=== PATIENT | male | born 1990 | race Caucasian/White ===

== ENCOUNTER 2016-05-23 11:21 | Inpatient (IN) | payer OTHER ==
--- NOTE | ~2016-05-23 | PA ---
Unit #: [id number] #: [id number] Patient: EDWARD MARKS [id number] [facility] [address] [place] [address] [id number] MR#: [id number] NAME: EDWARD MARKS. ROOM: P176 Age: 26 Sex: M Admission Date: 05/23/2016 : 1990 Date of Assessment: 05/23/2016 Attending Physician: Luisito Urbano M.D. Admitting Physician: Luisito Urbano M.D. Primary Care Physician: Primary Care Physician No PSYCHIATRIC ASSESSMENT IDENTIFYING INFORMATION The patient is a 26-year-old white male admitted yet again to the [facility] reporting increasing suicidal ideation as well abuse of alcohol and marijuana. CHIEF COMPLAINT None given. INFORMANT(S) Chart. Patient cannot be aroused for interview. HISTORY OF PRESENT ILLNESS The patient is a 26-year-old white male well known to this physician for multiple previous admission to this facility. He is readmitted to the [facility] unit after presenting to this facility voicing positive suicidal ideation with a plan to slit his throat or blow his brains out. He claims that he has been drinking a fifth of hard liquor on a daily basis as well as smoking large amounts of cannabis. The patient was last hospitalized at this facility in March of this year under strikingly similar circumstances. He states that he has been noncompliant with prescribed psychotropic medications for which at this time include Seroquel, trazodone, ranitidine, Thorazine and Neurontin. For more complete history of present illness, please refer to previously dictated notes. PAST PSYCHIATRIC HISTORY Reviewed, no changes. PAST MEDICAL HISTORY Reviewed, no changes. MEDICATIONS 1. Trazodone 2. Seroquel 3. Ranitidine 4. Thorazine 5. Neurontin ALLERGIES Abilify. FAMILY HISTORY Reviewed, no changes. Unit #: [id number] #: [id number] Patient: EDWARD MARKS SOCIAL HISTORY Reviewed, no changes. MENTAL STATUS EXAMINATION Examination at this time reveals the patient to be a large-statured soundly sleeping white male who cannot be aroused for interview in spite of multiple efforts to do so. ASSETS AND LIABILITIES ASSETS: To be assessed. LIABILITIES: Lack of investment in treatment, lack of coping mechanisms, unstable social life, ongoing substance use, limited intelligence. DIAGNOSTIC IMPRESSION 1. Bipolar disorder, most recent episode depressed. 2. Alcohol use disorder. 3. Cannabis use disorder. 4. Fraduhq-Vwkxre-Uhnfow syndrome. 5. Hypertension. TREATMENT PLAN The patient remains hospitalized for safety and stabilization. A routine detoxification protocol for alcohol will be initiated and we will restart the patient's previously prescribed medications. Suicidal precautions are in place. ESTIMATED LENGTH OF STAY Three to five days with followup to take place through the auspices of community mental health resources. Dictated by... Luisito Urbano M.D. REZA/lindsey TD: 05/23/2016 22:07 JOB #: [id number] PSYCHIATRIC ASSESSMENT X Luisito Urbano MD X PSYCHIATRIC ASSESSMENT
--- NOTE | ~2016-05-23 | HP ---
Unit #: [id number] #: [id number] Patient: OLEG MARKS [id number] [place] [address] [id number] MR#: [id number] NAME: OLEG MARKS. ROOM: 76 Age: 26 Sex: M Admission Date: 05/23/2016 : 1990 Attending Physician: Luisito Urbano M.D. Admitting Physician: Luisito Urbano M.D. Primary Care Physician: Primary Care Physician No HISTORY AND PHYSICAL HISTORY OF PRESENT ILLNESS Oleg is a 26 [address] to [facility] because of his abuse of alcohol. PAST MEDICAL HISTORY 1. History of alcohol abuse 2. High blood pressure 3. Zcghaay-Bupixl-Jlryrj Syndrome PAST SURGICAL HISTORY 1. Cleft palate repair 2. Oral ALLERGIES Abilify SOCIAL HISTORY He denies cigarettes. Admits to abusing alcohol and uses marijuana frequently. FAMILY HISTORY Medically not known. He is adopted. REVIEW OF SYSTEMS CONSTITUTIONAL: No fever or chills. HEENT: Denies any sore throat, ear pain or runny nose. CARDIOVASCULAR: Denies chest pain, irregular heart rhythm or palpitations. CHEST: Denies shortness of breath or cough. No hemoptysis. GASTROINTESTINAL: Denies nausea, vomiting, diarrhea or chronic constipation. ENDOCRINE: Denies history of increased thirst or urination. No recent significant weight loss or gain. GENITOURINARY: Denies dysuria, frequency, or hematuria. SKIN: Denies any rashes. HEMATOLOGIC: Denies history of increased bleeding or bruising. MUSCULOSKELETAL: Denies any hot, swollen joints. No generalized muscle pain. NEUROLOGIC: Denies problems with vision or speech. No frequent, severe headaches. No numbness, tingling or weakness in any extremities. Denies loss of bladder or bowel control. CURRENT MEDICATIONS Unit #: [id number] #: [id number] Patient: OLEG MARKS Detox protocol PHYSICAL EXAMINATION GENERAL: Alert, very large, in no apparent distress. VITAL SIGNS: Blood pressure 120/70, heart rate 80, respirations 16, temperature 98.6. WEIGHT: 226 pounds. HEIGHT: 6'6". SKIN: Warm and dry without rash or lesion. HEENT: Normocephalic. TMs not viewed. Oral and nasal passages clear. Conjunctivae clear. Pupils equal, round and reactive to light and accommodation. Extraocular movements intact. NECK: Supple without lymphadenopathy or thyromegaly. HEART: Regular rate and rhythm without murmur. LUNGS: Clear. ABDOMEN: Soft, nontender. : Not done. EXTREMITIES: No evidence of cyanosis, clubbing or edema. Moves all extremities without focal deficit. NEUROLOGICAL: Grossly within normal limits. Cranial Nerves: II: Visual covington are intact. III, IV AND : Extraocular movements are intact. Pupils are equal, round and reactive to light. V: Facial sensation is grossly normal. VII: Facial movements and expression are normal. VIII: Auditory acuity grossly intact. IX, X: Uvula is midline. Phonation is normal. XI: Patient shrugs shoulders and turns head normally. XII: Tongue protrudes in the midline. Sensory and Motor Function: Sensory and motor sensation is grossly normal. Motor: moves all extremities well. Coordination: Gait is normal. Deep Tendon Reflexes: Intact. IMPRESSION Psychiatric admission RECOMMENDATIONS PSYCHIATRIC: Per psychiatrist. MEDICAL: I see no contraindications to participating in facility's activities. MEDICAL PROGNOSIS Good. MEDICAL CONDITION Stable. Dictated by... Viji Cooper P.A.-C. for Сергей Sinclair/lindsey TD: 05/24/2016 01:00 JOB #: [id number] Unit #: [id number] #: [id number] Patient: OLEG MARKS HISTORY AND PHYSICAL X Viji Cooper X HISTORY AND PHYSICAL
--- NOTE | ~2016-05-23 | DS ---
Unit #: [id number] #: [id number] Patient: EDWARD MARKS [id number] [place] [address] [id number] MR#: [id number] NAME: EDWARD MARKS. ROOM: [facility] Age: 26 Sex: M Admission Date: 05/23/2016 : 1990 Discharge Date: 05/27/2016 Attending Physician: Luisito Urbano M.D. Primary Care Physician: Primary Care Physician No DISCHARGE SUMMARY REASON FOR ADMISSION The patient is a 26-year-old single white male with history of bipolar spectrum disorder as well as alcohol abuse, admitted with recently increased alcohol use and suicidal ideation. HOSPITAL COURSE The patient was initially admitted to the [facility] unit and placed on routine detoxification protocol for alcohol. The patient again became agitated and was wandering in the halls. He was subsequently transferred to the [address] [place] [address] unit. Seroquel was increased to 800 mg at h.s. per the patient's request. The patient appeared improved with the increased Seroquel and requested discharge on 05/27/2016 and discharge was ordered. FINAL DIAGNOSES Bipolar disorder, most recent episode, mixed; alcohol use disorder; and "Bulldog syndrome." DISPOSITION ON DISCHARGE The patient is discharged on following medications; Desyrel 200 mg at h.s. p.r.n. insomnia, Thorazine 200 mg q.i.d. for psychosis, Neurontin 800 mg t.i.d. for anxiety, Pepcid 20 mg daily for GERD, and Seroquel 800 mg at bedtime for mood stabilization. DIET AND ACTIVITY No dietary or physical restrictions were placed on the patient at the time of discharge. FOLLOWUP Followup will take place through the auspices of community mental health sources. PROGNOSIS The patient's prognosis is considered fair. Dictated by... Luisito Urbano M.D. CB/leo TD: 05/27/2016 14:21 JOB #: [id number] Unit #: [id number] #: [id number] Patient: EDWARD MARKS DISCHARGE SUMMARY X Luisito Urbano MD X DISCHARGE SUMMARY
--- NOTE | ~2016-05-23 | PN ---
Unit #: [id number] #: [id number] Patient: EDWARD MARKS [id number] [facility] [address] [place] [address] [id number] I MR#: [id number] NAME: EDWARD MARKS. ROOM: P180 Age: 26 Sex: M Admission Date: 05/23/2016 : 1990 Attending Physician: Luisito Urbano M.D. Admitting Physician: Luisito Urbano M.D. Primary Care Physician: Primary Care Physician Bridget BAJWA PROGRESS NOTES DATE 05/25/2016 DISCUSSION The patient continues to complain of severely depressed mood, hopelessness and suicidal ideation stating that he "envisions himself cutting his throat. He is already on high doses of prescribed psychotropic medications and I am fearful that addition of an SSRI might destabilize the patient's bipolar symptoms. I have spoken with the patient regarding the importance of cessation of alcohol use and more to the point have spoken to the patient regarding the importance of some participation within the therapeutic milieu. Dictated by... Luisito Urbano M.D. CB/iban TD: 05/25/2016 16:21 JOB #: [id number] GARETT CONTRERAS NOTES X Luisito Urbano MD PROGRESS NOTE
--- NOTE | ~2016-05-23 | PN ---
Unit #: [id number] #: [id number] Patient: EDWARD MARKS [id number] [facility] [address] [place] [address] [id number] MR#: [id number] NAME: EDWARD MARKS ROOM: P110 Age: 26 Sex: M Admission Date: 05/23/2016 : 1990 Attending Physician: Luisito Urbano M.D. Admitting Physician: Luisito Urbano M.D. Primary Care Physician: Primary Care Physician Bridget BAJWA PROGRESS NOTES DATE 05/26/2016 DISCUSSION The patient continues to endorse positive suicidal ideation and hopelessness. He requests initiation of antidepressant instead of starting an SSRI or such medication. We will begin a trial. We will increase the patient's Seroquel to 800 mg at bedtime. The patient is agreeable with this plan. Dictated by... Сергей Hale TD: 05/26/2016 14:51 JOB #: [id number] DEJAN PROGRESS NOTES X Luisito Urbano MD PROGRESS NOTE
--- NOTE | ~2016-05-23 | PN ---
Unit #: [id number] #: [id number] Patient: EDWARD MARKS [id number] [facility] [address] [place] [address] [id number] I MR#: [id number] NAME: EDWARD MARKS ROOM: 76 Age: 26 Sex: M Admission Date: 05/23/2016 : 1990 Attending Physician: Luisito Urbano M.D. Admitting Physician: Luisito Urbano M.D. Primary Care Physician: Primary Care Physician Bridget CONTRERAS NOTES DATE 05/24/2016 DISCUSSION The patient is abed today continuing to complain of depressed mood and suicidal ideation. He continues to minimize his alcohol use. He remains of suicide precautions and I am encouraging him to increase his participation within the therapeutic milieu. Dictated by... Luisito Urbano M.D. CB/lindsey TD: 05/24/2016 23:22 JOB #: [id number] GARETT CONTRERAS NOTES X Luisito Urbano MD PROGRESS NOTE
[~2016-05-23 11:21] MED LIST: CLONIDINE PO; CONCERTA PO; VOLTAREN75 MG PO; ZANAFLEX PO
[2016-05-24 09:39] LABS: URINE APPEARANCE CLEAR; URINE BILIRUBIN NEG (NEG); URINE BLOOD NEG (NEG); URINE COLOR DK YELLOW; URINE GLUCOSE NEG (NEG); URINE KETONE NEG (NEG); URINE LEUKOCYTE ESTERASE NEG (NEG); URINE NITRATE NEG (NEG); URINE PROTEIN NEG (NEG); URINE SPECIFIC GRAVITY 1.019 (1.003-1.035)
[2016-05-24 09:46] LABS: BASOPHIL% 0.5 % (0-2.5); EOSINOPHIL# 0.3 X10e3 (0-0.7); EOSINOPHIL% 4.8 % (0.0-7.0); HEMATOCRIT 38.5 % (38.0-50.0); HEMOGLOBIN 13.1 gm/dL (13.0-16.0); LYMPHOCYTE% 30.6 % (17.0-45.0); MEAN CELL VOLUME 89.3 FL (83-96); MEAN CORPUSCULAR HEMOGLOBIN 30.4 PG (28-34); MEAN PLATELET VOLUME 7.9 FL (6.5-11.5); MONOCYTE# 0.7 X10e3 (0-1.0); MONOCYTE% 10.2 % (3.0-12.0); NEUTROPHIL# 3.5 X10e3 (1.5-7.1); NEUTROPHIL% 53.9 % (40-75); PLATELET COUNT 135 X10e3 (140-420); RED BLOOD COUNT 4.31 X10e (3.90-5.60); RED CELL DISTRIBUTION WIDTH 13.7 % (11.0-15.5); WHITE BLOOD COUNT 6.5 X10e3 (4.0-10.5)
[2016-05-24 09:50] LABS: DIFF IND NO
[2016-05-24 09:54] LABS: THYROID STIMULATING HORMONE 2.13 uIU/ml (0.34-5.60)
[2016-05-24 10:03] LABS: FREE THYROXIN (T4) 0.62 ng/dL (0.58-1.64)
[2016-05-24 10:16] LABS: ALBUMIN SERUM 4.2 g/dL (3.5-5.0); ALKALINE PHOSPHATASE 54 U/L (32-92); ALT (SGPT) 10 U/L (10-40); AST (SGOT) 13 U/L (10-42); BILIRUBIN,TOTAL 0.8 mg/dL (0.2-2.0); BLOOD UREA NITROGEN 16 mg/dL (9-23); CALCIUM SERUM 9.2 mg/dL (8.4-10.2); CARBON DIOXIDE 27 mmol/L (22-31); CHLORIDE 104 mmol/L (100-111); GLOM FILT RATE Estimated ABOVE60 mL/min (>60); GLUCOSE FASTING 85 mg/dL (70-110); POTASSIUM 4.1 mmol/L (3.5-5.1); PROTEIN TOTAL SERUM 6.9 g/dL (6.0-8.3); SODIUM 141 mmol/L (135-145)
[2016-05-24 10:37] LABS: AMPHETAMINE NEG (NEG); BARBITURATES NEG (NEG); BENZODIAZEPINES POS (NEG); COCAINE NEG (NEG); MARIJUANA POS (NEG); OPIATES NEG (NEG); TRICYCLIC ANTIDEPRESSANTS POS (NEG); U METHADONE NEG (NEG)
== END 2016-05-27 14:37 | disposition home or self-care (01) | DRG 885 ==
LOC: P1E 11:21 → P1S 05-25 17:01
PROVIDERS: Specialist
PROC: HZ2ZZZZ Detoxification Services for Substance Abuse Treatment (ICD-10-PCS; principal; 2016-05-23)
DX: F31.60 Bipolar disorder, current episode mixed, unspecified (principal); I10 Essential (primary) hypertension; Z72.89 Other problems related to lifestyle; F12.90 Cannabis use, unspecified, uncomplicated
CPT/HCPCS: 80053; 80307; 81003; 84439; 84443; 85025; 86592

== ENCOUNTER 2016-07-31 10:00 | Inpatient (IN) | payer OTHER ==
--- NOTE | ~2016-07-31 | HP ---
Unit #: [id number] #: [id number] Patient: OLEG MARKS [id number] [place] [address] [id number] I MR#: [id number] NAME: OLEG MARKS. ROOM: P207 Age: 26 Sex: M Admission Date: 07/31/2016 : 1990 Attending Physician: Luisito Urbano M.D. Admitting Physician: Luisito Urbano M.D. Primary Care Physician: Primary Care Physician No HISTORY AND PHYSICAL HISTORY OF PRESENT ILLNESS Oleg is a 26 year old admitted to [address] [place] [address] with depression and verbalizing wanting to hurt himself. PAST MEDICAL HISTORY 1. History of poly illicit substance abuse to include marijuana and methamphetamine. 2. History of alcohol abuse. 3. High blood pressure. 4. Xoibhbh-Rolwmt-Jogwiu Syndrome. PAST SURGICAL HISTORY 1. Cleft palate repair 2. Oral ALLERGIES Abilify SOCIAL HISTORY He denies cigarettes. Admits to abusing alcohol and uses marijuana and methamphetamine. FAMILY HISTORY Medically not known. He is adopted. REVIEW OF SYSTEMS CONSTITUTIONAL: No fever or chills. HEENT: Denies any sore throat, ear pain or runny nose. CARDIOVASCULAR: Denies chest pain, irregular heart rhythm or palpitations. CHEST: Denies shortness of breath or cough. No hemoptysis. GASTROINTESTINAL: Denies nausea, vomiting, diarrhea or chronic constipation. ENDOCRINE: Denies history of increased thirst or urination. No recent significant weight loss or gain. GENITOURINARY: Denies dysuria, frequency, or hematuria. SKIN: Denies any rashes. HEMATOLOGIC: Denies history of increased bleeding or bruising. MUSCULOSKELETAL: Denies any hot, swollen joints. No generalized muscle pain. NEUROLOGIC: Denies problems with vision or speech. No frequent, severe headaches. No numbness, tingling or weakness in any extremities. Denies loss of bladder or bowel control. Unit #: [id number] #: [id number] Patient: OLEG MARKS CURRENT MEDICATIONS 1. Seroquel 800 mg q.h.s. 2. Neurontin 800 mg t.i.d. 3. Thorazine 200 mg q.i.d. 4. Milk of Magnesia p.r.n. 5. Maalox p.r.n. 6. Tylenol p.r.n. 7. Desyrel 200 mg q.h.s. p.r.n. 8. Nicotine patch 14 mg q day 9. Pepcid 20 mg q day PHYSICAL EXAMINATION GENERAL: Alert, very large young man, in no apparent distress. VITAL SIGNS: Blood pressure 136/84, heart rate 90, respirations 16, temperature 98.6. WEIGHT: 220 pounds. HEIGHT: 6'6". SKIN: Warm and dry without rash or lesion. HEENT: Normocephalic. TMs not viewed. Oral and nasal passages clear. Conjunctivae clear. Pupils equal, round and reactive to light and accommodation. Extraocular movements intact. NECK: Supple without lymphadenopathy or thyromegaly. HEART: Regular rate and rhythm without murmur. LUNGS: Clear. ABDOMEN: Soft, nontender. : Not done. EXTREMITIES: No evidence of cyanosis, clubbing or edema. Moves all extremities without focal deficit. NEUROLOGICAL: Grossly within normal limits. Cranial Nerves: II: Visual covington are intact. III, IV AND : Extraocular movements are intact. Pupils are equal, round and reactive to light. V: Facial sensation is grossly normal. VII: Facial movements and expression are normal. VIII: Auditory acuity grossly intact. IX, X: Uvula is midline. Phonation is normal. XI: Patient shrugs shoulders and turns head normally. XII: Tongue protrudes in the midline. Sensory and Motor Function: Sensory and motor sensation is grossly normal. Motor: moves all extremities well. Coordination: Gait is normal. Deep Tendon Reflexes: Intact. IMPRESSION Psychiatric admission RECOMMENDATIONS PSYCHIATRIC: Per psychiatrist. MEDICAL: I see no contraindications to participating in facility's activities. MEDICAL PROGNOSIS Good. MEDICAL CONDITION Stable. Unit #: [id number] #: [id number] Patient: OLEG MARKS Dictated by... Viji Cooper P.A.-C. for Сергей Sinclair/lindsey TD: 08/02/2016 00:12 JOB #: [id number] HISTORY AND PHYSICAL Page 1 of 1 X Viji Cooper X HISTORY AND PHYSICAL
--- NOTE | ~2016-07-31 | PA ---
Unit #: [id number] #: [id number] Patient: EDWARD MARKS [id number] [place] [address] [id number] I MR#: [id number] NAME: EDWARD MARKS. ROOM: P207 Age: 26 Sex: M Admission Date: 07/31/2016 : 1990 Date of Assessment: 07/31/2016 Attending Physician: Luisito Urbano M.D. Admitting Physician: Luisito Urbano M.D. Primary Care Physician: Primary Care Physician No PSYCHIATRIC ASSESSMENT IDENTIFYING INFORMATION The patient is a 26-year-old white male, well known to this physician admitted with recurrent suicidal ideation, and abuse of methamphetamine. INFORMANT(S) Patient, patient reliability is fair. CHIEF COMPLAINT Detox and suicidal. HISTORY OF PRESENT ILLNESS The patient is a 26-year-old white male, well known to this physician, from multiple previous admissions to this facility. He is admitted with recurrent suicidal ideation related to abuse of methamphetamine and the recent revelation that his mother is suffering from "stage IV lymph node cancer." The patient is continuing to endorse positive suicidal ideation. when seen today he states that he had previously been treated for alcohol withdrawal, but states that his most recent substance of choice has been methamphetamine. He continues to endorse positive suicidal ideation during today's interview. For more complete history of present illness please refer to previously dictated notes. PAST PSYCHIATRIC HISTORY Reviewed and no changes. PAST MEDICAL HISTORY Reviewed and no changes. MEDICATIONS AT THE TIME OF THE PATIENT'S LAST DISCHARGE FROM THIS FACILITY His medication regimen included: 1. Desyrel 2. Thorazine 3. Neurontin 4. Pepcid 5. Seroquel ALLERGIES Abilify FAMILY HISTORY Reviewed and no changes. SOCIAL HISTORY Unit #: [id number] #: [id number] Patient: EDWARD MARKS Reviewed and no changes apart from the fact that the patient's drug of choice on this admission is methamphetamine. MENTAL STATUS EXAM At this time reveals the patient to be a large stature white male appearing his stated age. He is in no apparent physical distress at the time of the examination. He is awake, alert, and oriented in all spheres. His mood is dysphoric. His affect blunted. Speech is generally relevant and coherent. There are no gross deficits to memory or cognition noted. Intelligence is judged to be in the low average range based on fund of knowledge. The patient is cooperative during the interview. He is currently endorsing positive suicidal ideation. He denies homicidal ideation. He denies any psychotic symptoms. His judgment and insight appear to be at baseline. ASSETS To be assessed. LIABILITIES Lack of resources, ongoing substance use. DIAGNOSTIC IMPRESSION [place] I: Bipolar disorder, most recent episode depressed. Alcohol use disorder, by history. Methamphetamine use disorder. Cannabis use disorder. [place] II: [place] III: Nzquqwt-Gouibt-Jcafll syndrome. Hypertension. TREATMENT PLAN The patient remains hospitalized for safety and stabilization and we will restart previously prescribed medications and suicide precautions are in place. The patient will participate in appropriate tsang and milieu activities. ESTIMATED LENGTH OF STAY IN THE HOSPITAL Zudm-gq-tkgij days. Dictated by... Luisito Urbano M.D. REZA/jennifer TD: 08/01/2016 07:30 JOB #: [id number] Unit #: [id number] #: [id number] Patient: KENDRICKEDWARD C PSYCHIATRIC ASSESSMENT Page 1 of 1 X Luisito Urbano MD PSYCHIATRIC ASSESSMENT
--- NOTE | ~2016-07-31 | DS ---
Unit #: [id number] #: [id number] Patient: EDWARD MARKS [id number] [facility] [address] [place] [address] [id number] MR#: [id number] NAME: EDWARD MARKS. ROOM: P207 Age: 26 Sex: M Admission Date: 07/31/2016 : 1990 Discharge Date: 08/02/2016 Attending Physician: Luisito Urbano M.D. Primary Care Physician: Primary Care Physician No DISCHARGE SUMMARY REASON FOR ADMISSION The patient is a 26-year-old white male, admitted with suicidal ideation and abuse of methamphetamine. HOSPITAL COURSE The patient was admitted to the [address] [place] [address] unit and placed on suicide precautions. Home medications including trazodone, Thorazine, Seroquel, and Neurontin were continued. The patient's stay in the hospital was a brief and uneventful one. His mood brightened considerably as his stay in the hospital progressed with re-initiation of medications. By 08/02/2016, the patient requested discharge and it was so ordered. FINAL DIAGNOSES Methamphetamine use disorder; bipolar disorder, most recent episode depressed; Gyeisgk-Ufgfnc-Gltdpv syndrome; history of high blood pressure. DISCHARGE MEDICATIONS The patient was discharged on the following medications; trazodone 300 mg at bedtime for insomnia, Thorazine 200 mg q.i.d. for psychosis, Neurontin 800 mg t.i.d. for anxiety, Seroquel 400 mg two tablets at bedtime for psychosis. DISCHARGE INSTRUCTIONS No dietary or physical restrictions were placed on the patient at the time of discharge. FOLLOWUP Followup will take place through the auspices of community mental health resources. PROGNOSIS The patient's prognosis remains guarded. Dictated by... Luisito Urbano M.D. CB/leo TD: 08/03/2016 03:53 JOB #: [id number] Unit #: [id number] #: [id number] Patient: EDWARD MARKS DISCHARGE SUMMARY Page 1 of 1 X Luisito Urbano MD DISCHARGE SUMMARY
--- NOTE | ~2016-07-31 | PN ---
Unit #: [id number] #: [id number] Patient: EDWARD MARKS [id number] [facility] [address] [place] [address] [id number] MR#: [id number] NAME: EDWARD MARKS ROOM: P207 Age: 26 Sex: M Admission Date: 07/31/2016 : 1990 Attending Physician: Luisito Urbano M.D. Admitting Physician: Luisito Urbano M.D. Primary Care Physician: Primary Care Physician Bridget BAJWA PROGRESS NOTES DATE 08/01/2016 DISCUSSION The patient remains dysphoric. He exhibits little in the way or signs or symptoms of withdrawal but continues to endorse positive suicidal ideation related to his mother's illness. He states that he slept poorly last night but attributes this to his having left his nicotine patch in place. Dictated by... Luisito Urbano M.D. CB/lindsey TD: 08/02/2016 01:59 JOB #: [id number] [facility] PROGRESS NOTES Page 1 of 1 X Luisito Urbano MD PROGRESS NOTE
[2016-08-01 09:59] LABS: BASOPHIL% 0.4 % (0-2.5); EOSINOPHIL# 0.2 X10e3 (0-0.7); EOSINOPHIL% 3.2 % (0.0-7.0); HEMOGLOBIN 13.5 gm/dL (13.0-16.0); LYMPHOCYTE# 1.8 X10e3 (1.0-3.5); LYMPHOCYTE% 24.4 % (17.0-45.0); MEAN CELL VOLUME 91.7 FL (83-96); MEAN CORPUSCULAR HEMOGLOBIN 30.3 PG (28-34); MONOCYTE# 0.9 X10e3 (0-1.0); MONOCYTE% 11.9 % (3.0-12.0); NEUTROPHIL# 4.4 X10e3 (1.5-7.1); NEUTROPHIL% 60.1 % (40-75); PLATELET COUNT 135 X10e3 (140-420); RED BLOOD COUNT 4.47 X10e (3.90-5.60); WHITE BLOOD COUNT 7.4 X10e3 (4.0-10.5)
[2016-08-01 10:14] LABS: DIFF IND NO
[2016-08-01 10:19] LABS: URINE APPEARANCE CLEAR; URINE BILIRUBIN NEG (NEG); URINE BLOOD NEG (NEG); URINE COLOR YELLOW; URINE GLUCOSE NEG (NEG); URINE KETONE NEG (NEG); URINE LEUKOCYTE ESTERASE NEG (NEG); URINE NITRATE NEG (NEG); URINE PROTEIN NEG (NEG); URINE SPECIFIC GRAVITY 1.003 (1.003-1.035); URINE UROBILINOGEN 0.2 MG/DL (NEG)
[2016-08-01 10:36] LABS: ALBUMIN SERUM 4.5 g/dL (3.5-5.0); BILIRUBIN,TOTAL 1.1 mg/dL (0.2-2.0); BUN/CREATININE RATIO 11.81; CALCIUM SERUM 9.3 mg/dL (8.4-10.2); CREATININE SERUM 1.1 mg/dL (0.6-1.4); GLOM FILT RATE Estimated 93.5 mL/min (>60); POTASSIUM 3.7 mmol/L (3.5-5.1); PROTEIN TOTAL SERUM 7.2 g/dL (6.0-8.3)
[2016-08-01 10:41] LABS: AMPHETAMINE NEG (NEG); BARBITURATES NEG (NEG); BENZODIAZEPINES NEG (NEG); COCAINE NEG (NEG); MARIJUANA POS (NEG); OPIATES NEG (NEG); TRICYCLIC ANTIDEPRESSANTS NEG (NEG); U METHADONE NEG (NEG)
== END 2016-08-02 16:41 | disposition home or self-care (01) | DRG 885 ==
LOC: P2S 13:14
PROVIDERS: Specialist
PROC: HZ2ZZZZ Detoxification Services for Substance Abuse Treatment (ICD-10-PCS; principal; 2016-07-31)
DX: F31.9 Bipolar disorder, unspecified (principal); Q87.3 Congenital malformation syndromes involving early overgrowth; R45.851 Suicidal ideations; F10.10 Alcohol abuse, uncomplicated; F15.10 Other stimulant abuse, uncomplicated; F12.10 Cannabis abuse, uncomplicated; I10 Essential (primary) hypertension; Z88.8 Allergy status to other drugs, medicaments and biological substances
CPT/HCPCS: 80053; 80307; 81003; 85025

== ENCOUNTER 2016-08-24 21:25 | Inpatient (IN) | payer OTHER ==
--- NOTE | ~2016-08-24 | PA ---
Unit #: [id number] #: [id number] Patient: EDWARD MARKS [id number] [facility] [address] [place] [address] [id number] MR#: [id number] NAME: EDWARD MARKS. ROOM: P130 Age: 26 Sex: M Admission Date: 08/24/2016 : 1990 Date of Assessment: 08/25/2016 Attending Physician: Luisito Urbano M.D. Admitting Physician: Luisito Urbano M.D. Primary Care Physician: Primary Care Physician No PSYCHIATRIC ASSESSMENT IDENTIFYING INFORMATION The patient is a 26-year-old male admitted to the [address] [place] [address] after he presented to this facility once again voicing suicidal ideation. CHIEF COMPLAINT None given. INFORMANT(S) Chart. Patient cannot be aroused for interview. HISTORY OF PRESENT ILLNESS The patient is a 26-year-old white male well known to this physician from multiple previous admissions to this facility. He is admitted reporting recurrent suicidal ideation with plan to slit his wrist or blow his head off. The patient reports that he also has access to a gun. The patient reports using marijuana and also has in the past abused methamphetamine and alcohol. When seen today, the patient is resting comfortably and cannot be aroused for interview in spite of multiple efforts to do so. PAST PSYCHIATRIC HISTORY Reviewed, no changes. PAST MEDICAL HISTORY Reviewed, no changes. MEDICATIONS Thorazine, Pepcid, Neurontin, Seroquel, and trazodone. ALLERGIES Abilify. FAMILY HISTORY Noncontributory. SOCIAL HISTORY The patient lives with his parents. He is not presently employed. He reports substance use as noted previously including abuse of methamphetamine, cocaine, alcohol, and cannabis. MENTAL STATUS EXAMINATION Examination at this time reveals the patient to be a well-developed well-nourished white male appearing stated age. He is in no apparent physical distress at the time of examination. He is sleeping soundly, and Unit #: [id number] #: [id number] Patient: EDWARD MARKS multiple attempts to arouse him are not successful. ASSETS AND LIABILITIES The patient's assets are to be assessed. Liabilities: Ongoing substance use, lack of resources. Limited intelligence. DIAGNOSTIC IMPRESSION 1. Bipolar disorder, depressed phase, severe without psychotic features. 2. Wjlaxgm-Tgavdo-Rtjhtf syndrome. TREATMENT PLAN The patient's home medications will be restarted, and we will watch for any signs or symptoms of withdrawal. Suicide precautions remain in place. The patient will participate in appropriate order of milieu activities. ESTIMATED LENGTH OF STAY 5 to 7 days. Dictated by... Luisito Urbano M.D. Bindu TD: 08/25/2016 14:18 JOB #: [id number] PSYCHIATRIC ASSESSMENT Page 1 of 1 X Luisito Urbano MD X PSYCHIATRIC ASSESSMENT
--- NOTE | ~2016-08-24 | PN ---
Unit #: [id number] #: [id number] Patient: EDWARD MARKS [id number] [facility] [address] [place] [address] [id number] I MR#: [id number] NAME: EDWARD MARKS ROOM: P130 Age: 26 Sex: M Admission Date: 08/24/2016 : 1990 Attending Physician: Luisito Urbano M.D. Admitting Physician: Luisito Urbano M.D. Primary Care Physician: Primary Care Physician Bridget BAJWA PROGRESS NOTES DATE 08/28/2016 DISCUSSION The patient appears significantly improved today. He is brighter and reporting reduced suicidal ideation. Should he sustain progress discharge will likely take place tomorrow. Dictated by... Luisito Urbano M.D. CB/lindsey TD: 08/29/2016 03:47 JOB #: [id number] [facility] PROGRESS NOTES Page 1 of 1 X Luisito Urbano MD X PROGRESS NOTE
--- NOTE | ~2016-08-24 | PN ---
Unit #: [id number] #: [id number] Patient: EDWARD MARKS [id number] [facility] [address] [place] [address] [id number] MR#: [id number] NAME: EDWARD MARKS ROOM: P130 Age: 26 Sex: M Admission Date: 08/24/2016 : 1990 Attending Physician: Luisito Urbano M.D. Admitting Physician: Luisito Urbano M.D. Primary Care Physician: Primary Care Physician Bridget BAJWA PROGRESS NOTES DATE 08/27/2016 DISCUSSION The patient seems brighter today. He is requesting an increase in his trazodone dose, and we will increase his dose of this medication to 300 mg at h.s. He appears to be approaching his psychiatric baseline and expects discharge to take place early next week. Dictated by... Luisito Urbano M.D. CB/elina TD: 08/27/2016 14:33 JOB #: [id number] [facility] PROGRESS NOTES Page 1 of 1 X Luisito Urbano MD PROGRESS NOTE
--- NOTE | ~2016-08-24 | PN ---
Unit #: [id number] #: [id number] Patient: EDWARD MARKS [id number] [facility] [address] [place] [address] [id number] Meena MR#: [id number] NAME: EDWARD MARKS ROOM: P130 Age: 26 Sex: M Admission Date: 08/24/2016 : 1990 Attending Physician: Luisito Urbano M.D. Admitting Physician: Luisito Urbano M.D. Primary Care Physician: Primary Care Physician Bridget CONTRERAS NOTES DATE 08/26/2016 DISCUSSION The patient today complains of ongoing anxiety and depressed mood. He requests re-initiation of trazodone and Neurontin but I informed the patient that both these medications have already been restarted and I do not intend to increase his doses. Dictated by... Luisito Urbano M.D. CB/iban TD: 08/26/2016 19:50 JOB #: [id number] [facility] PROGRESS NOTES Page 1 of 1 X Luisito Urbano MD PROGRESS NOTE
--- NOTE | ~2016-08-24 | HP ---
Unit #: [id number] #: [id number] Patient: OLEG MARKS [id number] [facility] [address] [place] [address] [id number] MR#: [id number] NAME: OLEG MARKS. ROOM: P130 Age: 26 Sex: M Admission Date: 08/24/2016 : 1990 Attending Physician: Luisito Urbano M.D. Admitting Physician: Luisito Urbano M.D. Primary Care Physician: Primary Care Physician No HISTORY AND PHYSICAL Oleg is a 26 year old admitted to [address] [place] [address] with depression and verbalizing wanting to hurt himself. He was recently discharged from this facility after treatment for the same. Patient was seen and H and P dated 08/01/16 was reviewed. This is current. No changes. Please see H and P dated 08/01/16. Dictated by... Viji Cooper P.A.-C. for Сергей Sinclair/iban TD: 08/25/2016 16:36 JOB #: [id number] HISTORY AND PHYSICAL Page 1 of 1 X Viji Cooper HISTORY AND PHYSICAL
--- NOTE | ~2016-08-24 | DS ---
Unit #: [id number] #: [id number] Patient: EDWARD MARKS [id number] [place] [address] [id number] I MR#: [id number] NAME: EDWARD MARKS. ROOM: 30 Age: 26 Sex: M Admission Date: 08/24/2016 : 1990 Discharge Date: 08/29/2016 Attending Physician: Luisito Urbano M.D. Primary Care Physician: Primary Care Physician No DISCHARGE SUMMARY REASON FOR ADMISSION The patient is a 26-year-old white male, admitted with recurrent abuse of alcohol and suicidal ideation. HOSPITAL COURSE The patient was admitted to the [address] [place] [address] and restarted on previously prescribed home medications. A routine detoxification protocol for alcohol was initiated. The patient's stay in the hospital was a fairly typical one. He participated to very little degree within the therapeutic milieu, but did not exhibit the psychomotor agitation which has been so prevalent during previous hospitalizations. By 08/29/2016, the patient denied suicidal ideations and requested discharge. It was so ordered. FINAL DIAGNOSES Bipolar disorder, most recent episode depressed; alcohol use disorder; Izywsyl-Nrszbe-Njcvns syndrome. DISPOSITION ON DISCHARGE The patient is discharged on the following medications: Thorazine 200 mg q.i.d. for mood stabilization, Pepcid 20 mg daily for GERD, Neurontin 800 mg t.i.d. for anxiety, Seroquel 800 mg at bedtime for mood stabilization, Desyrel 200 mg at bedtime p.r.n. insomnia, ibuprofen 800 mg q.6 hours p.r.n. pain. Justification for 2 antipsychotics, the patient was on 2 antipsychotics at the time of admission and no medication changes were made during the patient's stay in the hospital. He was maintained optimal stability on this combination of medications. FOLLOWUP The patient will follow through the auspices of community mental health resources. PROGNOSIS His prognosis is considered fair. Dictated by... Luisito Urbano M.D. CB/leo TD: 08/29/2016 14:51 JOB #: [id number] Unit #: [id number] #: [id number] Patient: EDWARD MARKS DISCHARGE SUMMARY Page 1 of 1 X Luisito Urbano MD DISCHARGE SUMMARY
== END 2016-08-29 18:03 | disposition home or self-care (01) | DRG 885 ==
LOC: P1S 23:40
PROC: HZ2ZZZZ Detoxification Services for Substance Abuse Treatment (ICD-10-PCS; principal; 2016-08-24)
DX: F31.4 Bipolar disorder, current episode depressed, severe, without psychotic features (principal); F10.10 Alcohol abuse, uncomplicated

== ENCOUNTER 2016-10-10 01:00 | Inpatient (IN) | payer OTHER ==
[~2016-10-10] VITALS: Ht 198.1 cm; Wt 97.5 kg
--- NOTE | ~2016-10-10 | PA ---
Unit #: [id number] #: [id number] Patient: EDWARD MARKS [id number] [facility] [address] [place] [address] [id number] I MR#: [id number] NAME: EDWARD MARKS. ROOM: P121 Age: 26 Sex: M Admission Date: 10/10/2016 : 1990 Date of Assessment: 10/10/2016 Attending Physician: Luisito Urbano M.D. Admitting Physician: Luisito Urbano M.D. Primary Care Physician: Generic Doctor Not In System PSYCHIATRIC ASSESSMENT IDENTIFYING INFORMATION The patient is a 26-year-old white male admitted with positive suicidal ideation. CHIEF COMPLAINT The same thing. INFORMANT The patient, reliability is good. HISTORY OF PRESENT ILLNESS The patient is a 26-year-old single white male admitted with increasing suicidal ideation. The patient reports at this point that the most (1) stressor in his life is the of his father 7 years ago. He continues to grief that loss. The patient states that he has not been compliant and with prescribed medications and has continued to abuse various psychoactive substances including cannabis and alcohol. He continues to endorse positive suicidal ideation during today's interview. For more complete history of present illness please refer to previous dictated notes. PAST PSYCHIATRIC HISTORY Reviewed no changes. PAST MEDICAL HISTORY Reviewed no changes. MEDICATIONS Thorazine, Pepcid, Neurontin, Seroquel, trazodone, Motrin. ALLERGIES Abilify FAMILY HISTORY Reviewed no changes. SOCIAL HISTORY Reviewed no changes. MENTAL STATUS EXAMINATION At this time reveals the patient to be a tall, largely statured white male appearing his stated age. He is in no apparent physical distress at the time of examination. He is awake, alert, and oriented in all spheres. Unit #: [id number] #: [id number] Patient: EDWARD MARKS His mood is dysphoric. His affect blunted. Speech is generally relevant and coherent. There are no gross deficits in memory or cognition noted. Intelligence is judged to be in the low average range based on fund of knowledge. The patient is cooperative throughout the interview. He continues to endorse positive suicidal ideation. He denies homicidal ideation. He denies any psychotic symptoms. His judgment and insight appear to be at or near baseline. ASSETS AND LIABILITIES ASSETS: To be assessed. LIABILITIES: Lack of resources. DIAGNOSTIC IMPRESSION 1. Bipolar disorder depressed phase. 2. Psychostimulants use disorder. 3. Alcohol use disorder "bulldog syndrome". PSYCHIATRIC PLAN/TREATMENT GOALS The patient remains hospitalized for safety and stabilization. I will add Depakote 500 mg two tablets at bedtime in hopes of addressing the patient's mood instability and behavioral issues. Suicidal precautions remain in place and routine detoxification protocol for alcohol will be initiated. ESTIMATED LENGTH OF STAY Three to five days. Dictated by... Luisito Urbano M.D. REZA/lindsey TD: 10/10/2016 22:38 JOB #: [id number] PSYCHIATRIC ASSESSMENT Page 1 of 1 X Luisito Urbano MD X PSYCHIATRIC ASSESSMENT
--- NOTE | ~2016-10-10 | DS ---
Unit #: [id number] #: [id number] Patient: EDWARD MARKS [id number] [facility] [address] [place] [address] [id number] I MR#: [id number] NAME: EDWARD MARKS. ROOM: [facility] Age: 26 Sex: M Admission Date: 10/10/2016 : 1990 Discharge Date: 10/13/2016 Attending Physician: Luisito Urbano M.D. Primary Care Physician: Generic Doctor Not In System DISCHARGE SUMMARY REASON FOR ADMISSION The patient is a 26-year-old white male admitted to the [address] [place] [address] voicing suicidal ideation. HOSPITAL COURSE The patient was admitted to [address] [place] [address] and placed on suicidal precautions. He was continued on previously prescribed home medications and given his complaints of ongoing mood stabilization was begun on Depakote ER 500 mg two tablets at bedtime. He tolerated the medication well. His behavior within the therapeutic milieu was generally appropriate though he participated to no significant degree in therapeutic activities. By 10/13 the patient was denying suicidal ideation and discharge was ordered. FINAL DIAGNOSIS 1. Bipolar disorder most recent episode depressed. 2. GERD "bulldog syndrome". DISPOSITION ON DISCHARGE The patient is discharged on the following medications: Depakote ER 1000 mg at bedtime for mood stabilization, Desyrel 200 mg at bedtime p.r.n. insomnia, Motrin 800 mg q.6 hours p.r.n. pain, Seroquel 800 mg at bedtime for mood stabilization, Neurontin 800 mg three times daily for mood stabilization, Pepcid 20 mg once daily for hypertension, Thorazine 200 mg four times daily for mood stabilization and psychosis. No dietary or physical restrictions were placed on the patient at the time of discharge. Followup to take place through the auspices of community mental health resources. The patient's prognosis is considered fair. Dictated by... Luisito Urbano M.D. CB/lindsey TD: 10/14/2016 04:49 JOB #: [id number] Unit #: [id number] #: [id number] Patient: EDWARD MARKS DISCHARGE SUMMARY Page 1 of 1 X Luisito Urbano MD DISCHARGE SUMMARY
--- NOTE | ~2016-10-10 | PN ---
Unit #: [id number] #: [id number] Patient: EDWARD MARKS [id number] [facility] [address] [place] [address] [id number] I MR#: [id number] NAME: EDWARD MARKS ROOM: P121 Age: 26 Sex: M Admission Date: 10/10/2016 : 1990 Attending Physician: Luisito Urbano M.D. Admitting Physician: Luisito Urbano M.D. Primary Care Physician: Generic Doctor Not In System [facility] PROGRESS NOTES DATE 10/12/2016 DISCUSSION The patient tolerated initiation of Depakote without complaint. He remains seclusive to room but is reporting reduction in suicidal ideation. Should he sustain progress, discharge could take place as early as tomorrow. Dictated by... Luisito Urbano M.D. CB/elina TD: 10/12/2016 14:36 JOB #: [id number] [facility] PROGRESS NOTES Page 1 of 1 X Luisito Urbano MD PROGRESS NOTE
--- NOTE | ~2016-10-10 | HP ---
Unit #: [id number] #: [id number] Patient: OLEG MARKS [id number] [facility] [address] [place] [address] [id number] I MR#: [id number] NAME: OLEG MARKS. ROOM: P121 Age: 26 Sex: M Admission Date: 10/10/2016 : 1990 Attending Physician: Luisito Urbano M.D. Admitting Physician: Luisito Urbano M.D. Primary Care Physician: Generic Doctor Not In System HISTORY AND PHYSICAL HISTORY OF PRESENT ILLNESS Oleg is a 26-year-old male admitted on 10/10/[address] [place] [address] for depression and auditory hallucinations. PAST MEDICAL HISTORY Ursdgrt-Pfehzb-Wemacg syndrome and elevated blood pressure. PAST SURGICAL HISTORY Cleft palate repair. SOCIAL HISTORY He is currently single and living with his cousins. He smokes one pack of cigarettes daily, occasional alcohol use and occasional marijuana use. He also has a history of methamphetamine and crack cocaine use. FAMILY HISTORY Noncontributory. REVIEW OF SYSTEMS CONSTITUTIONAL: No fever or chills. HEENT: Denies any sore throat, ear pain or runny nose. CARDIOVASCULAR: Denies chest pain, irregular heart rhythm or palpitations. CHEST: Denies shortness of breath or cough. No hemoptysis. GASTROINTESTINAL: Denies nausea, vomiting, diarrhea or chronic constipation. ENDOCRINE: Denies history of increased thirst or urination. No recent significant weight loss or gain. GENITOURINARY: Denies dysuria, frequency, or hematuria. SKIN: Denies any rashes. HEMATOLOGIC: Denies history of increased bleeding or bruising. MUSCULOSKELETAL: Denies any hot, swollen joints. No generalized muscle pain. NEUROLOGIC: Denies problems with vision or speech. No frequent, severe headaches. No numbness, tingling or weakness in any extremities. Denies loss of bladder or bowel control. CURRENT MEDICATIONS 1. Thorazine 2. Pepcid 3. Neurontin 4. Seroquel Unit #: [id number] #: [id number] Patient: OLEG MARKS 5. Trazodone 6. Motrin ALLERGIES No known drug allergies. PHYSICAL EXAMINATION GENERAL: Alert, oriented, in no acute distress. VITAL SIGNS: Blood pressure 131/83, heart rate 73, respirations 16, temperature 97.3. HEIGHT: 6 foot 6 inches. WEIGHT: 215 pounds. SKIN: Warm and dry without rash or lesion. HEENT: Normocephalic. TMs not viewed. Oral and nasal passages clear. Conjunctivae clear. PERRLA. EOMs intact. NECK: Supple without lymphadenopathy or thyromegaly. HEART: Regular rate and rhythm without murmur. LUNGS: Clear. ABDOMEN: Soft, nontender, without masses or hepatosplenomegaly. : Not done. EXTREMITIES: No evidence of cyanosis, clubbing or edema. Moves all without focal deficit. NEUROLOGICAL: Grossly within normal limits. Cranial Nerves: II: Visual covington are intact. III, IV AND : Extraocular movements are intact. Pupils are equal, round and reactive to light. V: Facial sensation is grossly normal. VII: Facial movements and expression are normal. VIII: Auditory acuity grossly intact. IX, X: Uvula is midline. Phonation is normal. XI: Patient shrugs shoulders and turns head normally. XII: Tongue protrudes in the midline. Sensory and Motor Function: Sensory and motor sensation is grossly normal. Motor: moves all extremities well. Coordination: Gait is normal. Deep Tendon Reflexes: Intact. IMPRESSION 1. Psychiatric admission. 2. Hypertension. 3. Mbrkbdq-Gzxfmk-Brcmsn syndrome. RECOMMENDATIONS Psychiatric, per psychiatrist. MEDICAL: I see no contraindications to participating in facility's activities. MEDICAL PROGNOSIS Good. MEDICAL CONDITION Stable. Dictated by... Tiffanie CarrilloPMesha Unit #: [id number] #: [id number] Patient: KENDRICKOLEG LY Sharmila TOUSSAINT/lindsey TD: 10/11/2016 20:12 JOB #: [id number] HISTORY AND PHYSICAL Page 1 of 1 X CUATE MCCARTY APRN HISTORY AND PHYSICAL
--- NOTE | ~2016-10-10 | PN ---
Unit #: [id number] #: [id number] Patient: EDWARD MARKS [id number] [facility] [address] [place] [address] [id number] MR#: [id number] NAME: EDWARD MARKS. ROOM: P121 Age: 26 Sex: M Admission Date: 10/10/2016 : 1990 Attending Physician: Luisito Urbano M.D. Admitting Physician: Luisito Urbano M.D. Primary Care Physician: Generic Doctor Not In System [facility] PROGRESS NOTES DATE 10/11/2016 DISCUSSION The patient is continuing to complain of depressed mood and suicidal ideation. He reports that prior to hospitalization he was only "smoking weed,", and we have discontinued his detoxification protocol. I have encouraged to increase his participation within the therapeutic milieu, and we continue aggressive pharmacotherapy having had a Depakote now to address the patient's complaints of mood instability. Dictated by... Luisito Urbano M.D. CB/bzmynor TD: 10/11/2016 14:10 JOB #: [id number] [facility] PROGRESS NOTES Page 1 of 1 X Luisito Urbano MD PROGRESS NOTE
[2016-10-11 09:48] LABS: BASOPHIL% 0.6 % (0-2.5); EOSINOPHIL# 0.2 X10e3 (0-0.7); EOSINOPHIL% 3.9 % (0.0-7.0); HEMATOCRIT 36.6 % (38.0-50.0); HEMOGLOBIN 12.8 gm/dL (13.0-16.0); LYMPHOCYTE% 37.3 % (17.0-45.0); MEAN CELL VOLUME 89.3 FL (83-96); MEAN CORPUSCULAR HEMOGLOBIN 31.3 PG (28-34); MEAN CORPUSCULAR HGB CONC 35.1 g/dL (30-36); MEAN PLATELET VOLUME 7.5 FL (6.5-11.5); MONOCYTE# 0.5 X10e3 (0-1.0); MONOCYTE% 10.2 % (3.0-12.0); NEUTROPHIL# 2.5 X10e3 (1.5-7.1); PLATELET COUNT 152 X10e3 (140-420); RED BLOOD COUNT 4.09 X10e (3.90-5.60); RED CELL DISTRIBUTION WIDTH 13.4 % (11.0-15.5); WHITE BLOOD COUNT 5.3 X10e3 (4.0-10.5)
[2016-10-11 09:57] LABS: DIFF IND NO
[2016-10-11 10:07] LABS: THYROID STIMULATING HORMONE 0.81 uIU/ml (0.34-5.60)
[2016-10-11 10:14] LABS: FREE THYROXIN (T4) 0.94 ng/dL (0.58-1.64)
[2016-10-11 10:22] LABS: ALBUMIN SERUM 4.1 g/dL (3.5-5.0); BILIRUBIN,TOTAL 0.8 mg/dL (0.2-2.0); CALCIUM SERUM 9.1 mg/dL (8.4-10.2); GLOM FILT RATE Estimated 104.9 mL/min (>60); POTASSIUM 3.5 mmol/L (3.5-5.1); PROTEIN TOTAL SERUM 6.6 g/dL (6.0-8.3)
== END 2016-10-13 16:15 | disposition home or self-care (01) | DRG 885 ==
LOC: P1S 07:24 → POF 07:24 → P1S 12:05
PROVIDERS: Specialist
DX: F31.9 Bipolar disorder, unspecified (principal); F15.10 Other stimulant abuse, uncomplicated; F10.10 Alcohol abuse, uncomplicated
CPT/HCPCS: 80053; 84439; 84443; 85025

== ENCOUNTER 2016-10-21 02:02 | Inpatient (IN) | payer OTHER ==
--- NOTE | ~2016-10-21 | PN ---
Unit #: [id number] #: [id number] Patient: EDWARD MARKS [id number] [facility] [address] [place] [address] [id number] Meena MR#: [id number] NAME: EDWARD MARKS ROOM: P110 Age: 26 Sex: M Admission Date: 10/21/2016 : 1990 Attending Physician: Luisito Urbano M.D. Admitting Physician: Luisito Urbano M.D. Primary Care Physician: Primary Care Physician Bridget BAJWA PROGRESS NOTES DATE 10/23/2016 DISCUSSION The patient complains of some nausea when seen today. I will order p.r.n. Zofran. The patient is requesting a.m. discharge and this will likely be ordered as the patient reports that the problematic family members are now no longer in the home which he shares with his family. Dictated by... Luisito Urbano M.D. CB/lindsey TD: 10/23/2016 22:54 JOB #: [id number] [facility] PROGRESS NOTES Page 1 of 1 X Luisito Urbano MD PROGRESS NOTE
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
--- NOTE | ~2016-10-21 | PN ---
Unit #: [id number] #: [id number] Patient: EDWARD MARKS [id number] [facility] [address] [place] [address] [id number] I MR#: [id number] NAME: EDWARD MARKS ROOM: P110 Age: 26 Sex: M Admission Date: 10/21/2016 : 1990 Attending Physician: Luisito Urbano M.D. Admitting Physician: Luisito Urbano M.D. Primary Care Physician: Primary Care Physician Bridget BAJWA PROGRESS NOTES DATE 10/22/2016 DISCUSSION The patient is complaining of sore throat today and has undergone a beta strep screen. He continues to endorse suicidal ideation and hopelessness regarding his chaotic home situation. I have spoken today regarding realistic expectations of inpatient care. Dictated by... Сергей Hale TD: 10/22/2016 12:33 JOB #: [id number] [facility] PROGRESS NOTES Page 1 of 1 X Luisito Urbano MD PROGRESS NOTE
--- NOTE | ~2016-10-21 | HP ---
Unit #: [id number] #: [id number] Patient: OLEG MARKS [id number] [facility] [address] [place] [address] [id number] I MR#: [id number] NAME: OLEG MARKS ROOM: P110 Age: 26 Sex: M Admission Date: 10/21/2016 : 1990 Attending Physician: Luisito Urbano M.D. Admitting Physician: Luisito Urbano M.D. Primary Care Physician: Primary Care Physician No HISTORY AND PHYSICAL Oleg is a 26 year old admitted to [address] [place] [address] reporting hallucinations. He has had numerous admissions to this facility for the same. Patient was seen and H and P dated 10/11/16 was reviewed. This is current. No changes. Please see H and P dated 10/11/16. Dictated by... Viji Cooper P.A.-C. for Сергей Sinclair/iban TD: 10/21/2016 18:26 JOB #: [id number] HISTORY AND PHYSICAL Page 1 of 1 X Viji Cooper HISTORY AND PHYSICAL
--- NOTE | ~2016-10-21 | DS ---
Unit #: [id number] #: [id number] Patient: EDWARD MARKS [id number] [facility] [address] [place] [address] [id number] I MR#: [id number] NAME: EDWARD MARKS. ROOM: P110 Age: 26 Sex: M Admission Date: 10/21/2016 : 1990 Discharge Date: 10/24/2016 Attending Physician: Luisito Urbano M.D. Primary Care Physician: Primary Care Physician No DISCHARGE SUMMARY REASON FOR ADMISSION The patient is a 26-year-old white male, admitted to the hospital voicing suicidal ideation. HOSPITAL COURSE The patient was admitted to the [address] [place] [address] unit and continued on previously prescribed medications. His stay in the hospital was a fairly uneventful one apart from the fact that he was diagnosed with strep throat and begun on Zithromax. By 10/24/2016, the patient denied suicidal ideation and requested discharge and it was so ordered. FINAL DIAGNOSES Bipolar disorder, most recent episode depressed; strep throat; and bulldog syndrome. DISPOSITION ON DISCHARGE The patient is discharged on the following medications; Depakote ER 1000 mg at bedtime for mood stabilization, Desyrel 200 mg at bedtime p.r.n. insomnia, Motrin 800 mg q.6 hours p.r.n. pain, Seroquel 800 mg at bedtime for mood stabilization, Neurontin 800 mg t.i.d. for mood stabilization, Pepcid 20 mg once daily for GERD, Thorazine 200 mg q.i.d. for mood stabilization and psychosis, Zyrtec 10 mg once daily for environmental allergies, and Zithromax 250 mg one by mouth daily x3 days for strep throat. DIET AND ACTIVITY No dietary or physical restrictions were placed on the patient at the time of discharge. FOLLOWUP Followup will take place through the auspices of community mental health resources. PROGNOSIS The patient's prognosis remains guarded. Dictated by... Luisito Urbano M.D. CB/leo TD: 10/24/2016 15:22 Unit #: [id number] #: [id number] Patient: EDWARD MARKS JOB #: [id number] DISCHARGE SUMMARY Page 1 of 1 X Luisito Urbano MD DISCHARGE SUMMARY
--- NOTE | ~2016-10-21 | CO ---
Unit #: [id number] #: [id number] Patient: EDWARD MARKS [id number] [place] [address] [id number] MR#: [id number] NAME: EDWARD MARKS. ROOM: [facility] Age: 26 Sex: M Admission Date: 10/21/2016 : 1990 Attending Physician: Luisito Urbano M.D. Primary Care Physician: Primary Care Physician No Consultation Date: 10/22/2016 CONSULTATION REPORT SUBJECTIVE The patient is a 26-year-old man, who states that he woke up this morning with a sore throat. He does have a slight dry cough. He states this morning he did cough up some clear sputum. He states that it is hard to swallow. He denies any nausea, vomiting, fever, or chills. OBJECTIVE GENERAL: The patient is awake, alert, in no acute distress. VITAL SIGNS: Stable. Temperature 98.2, heart rate 66, respirations 18, blood pressure 159/92. HEENT: Head is atraumatic, normocephalic. Pupils equal, round, and reactive. Extraocular movements are intact. No drainage from ears or nares. NECK: Supple. Trachea is midline. No lymphadenopathy is appreciated. CHEST: Lungs are clear to auscultation bilaterally. CARDIOVASCULAR: S1, S2. Regular rate and rhythm. NEUROLOGIC: The patient is alert and oriented x3. ASSESSMENT Sore throat. PLAN At this time, we will start the patient on Zyrtec 10 mg p.o. daily. We will obtain if it is positive, we will start him on azithromycin 500 mg p.o. today and then 250 mg p.o. daily x4 days. Dictated by... Amalia Patel A.P.R.N. for Bernice Cisneros M.D. AM/leo TD: 10/22/2016 12:18 JOB #: [id number] Unit #: [id number] #: [id number] Patient: EDWARD MARKS CONSULTATION REPORT Page 1 of 1 X Amalia Patel APRN CONSULTATION REPORT
== END 2016-10-24 16:46 | disposition home or self-care (01) | DRG 885 ==
LOC: P1S 04:08
DX: F31.9 Bipolar disorder, unspecified (principal); R45.851 Suicidal ideations; Q87.3 Congenital malformation syndromes involving early overgrowth; F12.10 Cannabis abuse, uncomplicated; F10.10 Alcohol abuse, uncomplicated; K21.9 Gastro-esophageal reflux disease without esophagitis; J02.9 Acute pharyngitis, unspecified
CPT/HCPCS: 87880

== ENCOUNTER 2016-11-09 07:00 | Inpatient (IN) | payer OTHER ==
[~2016-11-09] VITALS: Ht 198.1 cm; Wt 97.5 kg
--- NOTE | ~2016-11-09 | PN ---
Unit #: [id number] #: [id number] Patient: EDWARD MARKS [id number] [facility] [address] [place] [address] [id number] I MR#: [id number] NAME: EDWARD MARKS ROOM: P132 Age: 26 Sex: M Admission Date: 11/09/2016 : 1990 Attending Physician: Luisito Urbano M.D. Admitting Physician: Luisito Urbano M.D. Primary Care Physician: Primary Care Physician Bridget BAJWA PROGRESS NOTES DATE 11/11/2016 DISCUSSION The patient remains seclusive to room and seems quite groggy. It is my suspicion that the patient's grogginess is possibly related to reinitiation of high doses of medication with which the patient is probably less than optimally compliant outside the hospital. Nonetheless, he continues to endorse positive suicidal ideation and we continue current treatment. Dictated by... Luisito Urbano M.D. CB/iban TD: 11/11/2016 15:44 JOB #: [id number] [facility] PROGRESS NOTES Page 1 of 1 X Luisito Urbano MD X PROGRESS NOTE
--- NOTE | ~2016-11-09 | DS ---
Unit #: [id number] #: [id number] Patient: EDWARD MARKS [id number] [facility] [address] [place] [address] [id number] I MR#: [id number] NAME: EDWARD MARKS. ROOM: 32 Age: 26 Sex: M Admission Date: 11/09/2016 : 1990 Discharge Date: 11/14/2016 Attending Physician: Luisito Urbano M.D. Primary Care Physician: Primary Care Physician No DISCHARGE SUMMARY REASON FOR ADMISSION The patient is a 26-year-old white male admitted with recurrent suicidal ideation related to grief over the of his uncle. HOSPITAL COURSE The patient was admitted to the [address] [place] [address] Unit and placed on suicide precautions. He was continued on previously prescribed medications including Depakote, trazodone, Motrin, Seroquel, Neurontin, Pepcid, and Thorazine. His stay in the hospital was a fairly uneventful one. He remained seclusive to room, but reported improvement in mood as his stay in the hospital progressed. By 11/14/2016, the patient denied suicidal ideation and discharged was ordered. FINAL DIAGNOSES 1. Bipolar disorder, most recent episode, depressed. 2. Antisocial traits versus disorder. 3. Opioid use disorder by history. 4. Alcohol use disorder by history. 5. Methamphetamine use disorder by history. 6. Aguujfh-Ohthwp-Utmhcq syndrome. DISPOSITION ON DISCHARGE The patient was discharged on the following medications: 1. Desyrel 200 mg at bedtime p.r.n. insomnia. 2. Motrin 800 mg q. 6 hours p.r.n. pain. 3. Seroquel 800 mg at bedtime for mood stabilization. 4. Neurontin 800 mg 3 times daily for anxiety. 5. Depakote ER 1000 mg at bedtime for mood stabilization. 6. Pepcid 20 mg daily for GERD. 7. Thorazine 200 mg 4 times daily for mood stabilization. 8. Claritin 10 mg once daily for environmental allergies. DIET AND ACTIVITY No dietary or physical restrictions placed on the patient at the time of discharge. FOLLOWUP Followup will take place through the auspices of community mental health resources. PROGNOSIS The patient's prognosis remains guarded. Unit #: [id number] #: [id number] Patient: EDWARD MARKS Dictated by... Luisito Urbano M.D. CB/elina TD: 11/16/2016 09:04 JOB #: [id number] DISCHARGE SUMMARY Page 1 of 1 X Luisito Urbano MD X DISCHARGE SUMMARY
--- NOTE | ~2016-11-09 | PN ---
Unit #: [id number] #: [id number] Patient: EDWARD MARKS [id number] [facility] [address] [place] [address] [id number] MR#: [id number] NAME: EDWARD MARKS ROOM: P132 Age: 26 Sex: M Admission Date: 11/09/2016 : 1990 Attending Physician: Luisito Urbano M.D. Admitting Physician: Luisito Urbano M.D. Primary Care Physician: Primary Care Physician Bridget BAJWA PROGRESS NOTES DATE 11/10/2016 DISCUSSION The patient continues to complain of dysphoric mood and suicidal ideation related to the recent of his uncle and dog. He states that he has mistakenly only been taking 1 Depakote at night instead of his prescribed dose. I have encouraged him to increase his participation within the therapeutic milieu. He remains on suicide precautions. Dictated by... Luisito Urbano M.D. CB/iban TD: 11/10/2016 15:04 JOB #: [id number] [facility] PROGRESS NOTES Page 1 of 1 X Luisito Urbano MD X PROGRESS NOTE
--- NOTE | ~2016-11-09 | HP ---
Unit #: [id number] #: [id number] Patient: OLEG MARKS [id number] [facility] [address] [place] [address] [id number] I MR#: [id number] NAME: OLEG MARKS ROOM: P132 Age: 26 Sex: M Admission Date: 11/09/2016 : 1990 Attending Physician: Luisito Urbano M.D. Admitting Physician: Luisito Urbano M.D. Primary Care Physician: Primary Care Physician No HISTORY AND PHYSICAL HISTORY OF PRESENT ILLNESS Oleg is a 26 year old admitted to [address] [place] [address] with depression. He has had numerous admissions to this facility. Patient was seen and H & P dated 10/11/2016 was reviewed. This is current. No changes. Please see H & P dated 10/11/2016. Dictated by... Viji Cooper P.A.-C. for Сергей Sinclair/lindsey TD: 11/09/2016 21:38 JOB #: [id number] HISTORY AND PHYSICAL Page 1 of 1 X Viji Cooper HISTORY AND PHYSICAL
--- NOTE | ~2016-11-09 | PN ---
Unit #: [id number] #: [id number] Patient: EDWARD MARKS [id number] [facility] [address] [place] [address] [id number] I MR#: [id number] NAME: EDWARD MARKS ROOM: P132 Age: 26 Sex: M Admission Date: 11/09/2016 : 1990 Attending Physician: Luisito Urbano M.D. Admitting Physician: Luisito Urbano M.D. Primary Care Physician: Primary Care Physician Bridget BAJWA PROGRESS NOTES DATE 11/13/2016 DISCUSSION The patient is out of his room and seems brighter today. He is reporting reduction in suicidal ideation. Should he sustain progress discharge will take place tomorrow. Dictated by... Luisito Urbano M.D. CB/lindsey TD: 11/14/2016 00:34 JOB #: [id number] [facility] PROGRESS NOTES Page 1 of 1 X Luisito Urbano MD X PROGRESS NOTE
--- NOTE | ~2016-11-09 | PA ---
Unit #: [id number] #: [id number] Patient: EDWARD MARKS [id number] [place] [address] [id number] I MR#: [id number] NAME: EDWARD MARKS. ROOM: 32 Age: 26 Sex: M Admission Date: 11/09/2016 : 1990 Date of Assessment: 11/09/2016 Attending Physician: Luisito Urbano M.D. Admitting Physician: Luisito Urbano M.D. Primary Care Physician: Primary Care Physician No PSYCHIATRIC ASSESSMENT IDENTIFYING INFORMATION The patient is a 26-year-old white male well known to this physician. He is readmitted reporting auditory hallucinations and suicidal thinking. The patient was also reporting suicidal plan to hang himself or cut his wrist. CHIEF COMPLAINT None given. INFORMANT(S) Chart. Patient cannot be aroused for interview. HISTORY OF PRESENT ILLNESS The patient is a 26-year-old white male who is frequently admitted to this facility. His last admission ended about 15 days ago. He is readmitted after presenting to this facility reporting increasing "mood swings and suicidal thoughts." The patient reports that grief over his uncle's have caused worsening of symptoms. The patient was reporting suicidal ideation with plan to hang himself or cut himself. He claims to have been compliant with prescribed psychotropic medications while outside the hospital. For more complete history of present illness, please refer to previously dictated notes. PAST PSYCHIATRIC HISTORY Reviewed, no changes. PAST MEDICAL HISTORY Reviewed, no changes. MEDICATIONS Trazodone, Motrin, Seroquel, Neurontin, Depakote ER, Pepcid Thorazine, and Zyrtec. ALLERGIES Abilify. FAMILY HISTORY Reviewed, no changes. SOCIAL HISTORY Reviewed, no changes. MENTAL STATUS EXAMINATION Examination at this time reveals the patient to be a soundly sleeping Unit #: [id number] #: [id number] Patient: EDWARD MARKS white male who has a blanket firmly clutched over his head. Multiple attempts to arouse the patient are unsuccessful. ASSETS AND LIABILITIES The patient's assets are to be assessed. Liabilities: Lack of resources. DIAGNOSTIC IMPRESSION 1. Bipolar disorder, depressed phase. 2. Alcohol use disorder by history. 3. Personality disorder unspecified. 4. Kktecqv-Jssqfz-Psxseg syndrome. TREATMENT PLAN The patient remains hospitalized for safety and stabilization. We will restart previously prescribed medications. The patient will participate in appropriate order of milieu activities. His expectations with the patient care will be redirected once the patient is awake and able to participate in interview. ESTIMATED LENGTH OF STAY 5 days. Dictated by... Luisito Urbano M.D. REZA/elina TD: 11/09/2016 14:25 JOB #: [id number] PSYCHIATRIC ASSESSMENT Page 1 of 1 X Luisito Urbano MD X PSYCHIATRIC ASSESSMENT
--- NOTE | ~2016-11-09 | PN ---
Unit #: [id number] #: [id number] Patient: EDWARD MARKS [id number] [facility] [address] [place] [address] [id number] MR#: [id number] NAME: EDWARD MARKS ROOM: P132 Age: 26 Sex: M Admission Date: 11/09/2016 : 1990 Attending Physician: Luisito Urbano M.D. Admitting Physician: Luisito Urbano M.D. Primary Care Physician: Primary Care Physician Bridget BAJWA PROGRESS NOTES DATE 11/12/2016 DISCUSSION The patient is abed but awakens without difficulty today. He reports that he is feeling "better" and is reporting reduction in suicidal ideation. I have told him to expect discharge after the weekend. Dictated by... Luisito Urbano M.D. CB/elina TD: 11/12/2016 13:33 JOB #: [id number] [facility] PROGRESS NOTES Page 1 of 1 X Luisito Urbano MD PROGRESS NOTE
[2016-11-10 10:06] LABS: BILIRUBIN,TOTAL 0.6 mg/dL (0.2-2.0); CALCIUM SERUM 8.9 mg/dL (8.4-10.2); GLOM FILT RATE Estimated 104.9 mL/min (>60); PROTEIN TOTAL SERUM 6.6 g/dL (6.0-8.3)
[2016-11-10 10:15] LABS: BASOPHIL% 0.4 % (0-2.5); EOSINOPHIL# 0.2 X10e3 (0-0.7); EOSINOPHIL% 4.4 % (0.0-7.0); HEMATOCRIT 37.9 % (38.0-50.0); LYMPHOCYTE% 38.6 % (17.0-45.0); MEAN CELL VOLUME 89.9 FL (83-96); MEAN CORPUSCULAR HEMOGLOBIN 30.7 PG (28-34); MEAN CORPUSCULAR HGB CONC 34.2 g/dL (30-36); MEAN PLATELET VOLUME 8.2 FL (6.5-11.5); MONOCYTE# 0.6 X10e3 (0-1.0); MONOCYTE% 10.8 % (3.0-12.0); NEUTROPHIL# 2.4 X10e3 (1.5-7.1); NEUTROPHIL% 45.8 % (40-75); PLATELET COUNT 154 X10e3 (140-420); RED BLOOD COUNT 4.22 X10e (3.90-5.60); WHITE BLOOD COUNT 5.2 X10e3 (4.0-10.5)
[2016-11-10 10:16] LABS: DIFF IND NO
== END 2016-11-14 17:35 | disposition home or self-care (01) | DRG 885 ==
LOC: P1S 09:47
PROVIDERS: Specialist
DX: F31.9 Bipolar disorder, unspecified (principal); R45.851 Suicidal ideations; F60.9 Personality disorder, unspecified
CPT/HCPCS: 80053; 80164; 85025

== ENCOUNTER 2016-11-29 02:00 | Inpatient (IN) | payer OTHER ==
[~2016-11-29] VITALS: Ht 198.1 cm; Wt 96.6 kg
--- NOTE | ~2016-11-29 | PN ---
Unit #: [id number] #: [id number] Patient: EDWARD MARKS [id number] [facility] [address] [place] [address] [id number] I MR#: [id number] NAME: EDWARD MARKS ROOM: P207 Age: 26 Sex: M Admission Date: 11/29/2016 : 1990 Attending Physician: Luisito Urbano M.D. Admitting Physician: Luisito Urbano M.D. Primary Care Physician: Primary Care Physician Bridget CONTRERAS NOTES DATE 11/30/2016 DISCUSSION The patient is actively participating within therapeutic milieu. Today, he admits to poor compliance with medications outside the hospital. He is reporting ongoing mood swings, auditory hallucinations, and continues to endorse positive suicidal ideation with plan to cut himself. Dictated by... Luisito Urbano M.D. CB/bzg TD: 11/30/2016 13:44 JOB #: [id number] [facility] PROGRESS NOTES Page 1 of 1 X Luisito Urbano MD PROGRESS NOTE
--- NOTE | ~2016-11-29 | HP ---
Unit #: [id number] #: [id number] Patient: OLEG MARKS [id number] [place] [address] [id number] I MR#: [id number] NAME: OLEG MARKS. ROOM: P207 Age: 26 Sex: M Admission Date: 11/29/2016 : 1990 Attending Physician: Luisito Urbano M.D. Admitting Physician: Luisito Urbano M.D. Primary Care Physician: Primary Care Physician No HISTORY AND PHYSICAL HISTORY OF PRESENT ILLNESS Oleg is a 26 year old admitted to [address] [place] [address] with depression. He has numerous admissions to this facility. PAST MEDICAL HISTORY 1. History of poly illicit substance abuse to include marijuana and methamphetamine. 2. History of alcohol abuse. 3. High blood pressure. 4. Lqxbmsj-Hcdvrj-Iwfdkj Syndrome. PAST SURGICAL HISTORY 1. Cleft palate repair. 2. Oral. ALLERGIES Abilify. SOCIAL HISTORY He denies cigarettes. Admits to abusing alcohol and uses marijuana and methamphetamine. FAMILY HISTORY Medically not known. He is adopted. REVIEW OF SYSTEMS CONSTITUTIONAL: No fever or chills. HEENT: Denies any sore throat, ear pain or runny nose. CARDIOVASCULAR: Denies chest pain, irregular heart rhythm or palpitations. CHEST: Denies shortness of breath or cough. No hemoptysis. GASTROINTESTINAL: Denies nausea, vomiting, diarrhea or chronic constipation. ENDOCRINE: Denies history of increased thirst or urination. No recent significant weight loss or gain. GENITOURINARY: Denies dysuria, frequency, or hematuria. SKIN: Denies any rashes. HEMATOLOGIC: Denies history of increased bleeding or bruising. MUSCULOSKELETAL: Denies any hot, swollen joints. No generalized muscle pain. NEUROLOGIC: Denies problems with vision or speech. No frequent, severe headaches. No numbness, tingling or weakness in any extremities. Denies loss of bladder or bowel control. Unit #: [id number] #: [id number] Patient: OLEG MARKS CURRENT MEDICATIONS 1. Seroquel 800 mg q.h.s. 2. Trazodone 300 mg q.h.s. 3. Depakote ER 1000 mg q.h.s. 4. Nicotine patch 14 mg q day 5. Thorazine 200 mg q.i.d. 6. Pepcid 40 mg b.i.d. 7. Neurontin 800 mg t.i.d. 8. Milk of Magnesia p.r.n. 9. Maalox p.r.n. 10 Tylenol p.r.n. PHYSICAL EXAMINATION GENERAL: Alert, very large young man, in no apparent distress. VITAL SIGNS: Blood pressure 114/60, heart rate 70, respirations 16, temperature 98.6. WEIGHT: 213 pounds. HEIGHT: 6'6". SKIN: Warm and dry without rash or lesion. HEENT: Normocephalic. TMs not viewed. Oral and nasal passages clear. Conjunctivae clear. Pupils equal, round and reactive to light and accommodation. Extraocular movements intact. NECK: Supple without lymphadenopathy or thyromegaly. HEART: Regular rate and rhythm without murmur. LUNGS: Clear. ABDOMEN: Soft, nontender. : Not done. EXTREMITIES: No evidence of cyanosis, clubbing or edema. Moves all extremities without focal deficit. NEUROLOGICAL: Grossly within normal limits. Cranial Nerves: II: Visual covington are intact. III, IV AND : Extraocular movements are intact. Pupils are equal, round and reactive to light. V: Facial sensation is grossly normal. VII: Facial movements and expression are normal. VIII: Auditory acuity grossly intact. IX, X: Uvula is midline. Phonation is normal. XI: Patient shrugs shoulders and turns head normally. XII: Tongue protrudes in the midline. Sensory and Motor Function: Sensory and motor sensation is grossly normal. Motor: moves all extremities well. Coordination: Gait is normal. Deep Tendon Reflexes: Intact. IMPRESSION Psychiatric admission RECOMMENDATIONS PSYCHIATRIC: Per psychiatrist. MEDICAL: I see no contraindications to participating in facility's activities. MEDICAL PROGNOSIS Good. MEDICAL CONDITION Stable. Unit #: [id number] #: [id number] Patient: OLEG MARKS Dictated by... Viji Cooper P.A.-C. for Сергей Sincliar/lindsey TD: 11/29/2016 19:35 JOB #: [id number] HISTORY AND PHYSICAL Page 1 of 1 X Viji Cooper HISTORY AND PHYSICAL
--- NOTE | ~2016-11-29 | DS ---
Unit #: [id number] #: [id number] Patient: EDWARD MARKS [id number] [facility] [address] [place] [address] [id number] I MR#: [id number] NAME: EDWARD MARKS. ROOM: P207 Age: 26 Sex: M Admission Date: 11/29/2016 : 1990 Discharge Date: 12/02/2016 Attending Physician: Luisito Urbano M.D. Primary Care Physician: Primary Care Physician No DISCHARGE SUMMARY REASON FOR ADMISSION The patient is a 26-year-old white male, admitted reporting positive suicidal ideation. HOSPITAL COURSE The patient was admitted to the [address] [place] [address] unit and placed on suicide precautions. He was restarted on previously prescribed medications and Inderal 10 mg t.i.d. was added to address the patient's complaints of anxiety. The patient's stay in the hospital was otherwise uneventful one apart from the fact that he was much more active within the therapeutic milieu and during past hospitalizations. By 12/02/2016, he was requesting discharge and it was so ordered. FINAL DIAGNOSES Bipolar disorder, most recent episode depressed; alcohol use disorder; methamphetamine use disorder; opioid use disorder; Oqvqxnx-Xhkrnv-Ckvqgq syndrome. DISPOSITION ON DISCHARGE The patient is discharged on the following medications. Seroquel 800 mg at bedtime for mood stabilization, Inderal 10 mg t.i.d. for anxiety, Thorazine 200 mg q.i.d. for mood stabilization and anxiety, Neurontin 800 mg t.i.d. for anxiety, Pepcid 20 mg b.i.d. for GERD, Depakote ER 1000 mg at bedtime for mood stabilization, Desyrel 300 mg at bedtime p.r.n. insomnia. DISCHARGE INSTRUCTIONS No dietary or physical restrictions were placed on the patient at the time of discharge. FOLLOWUP Followup will take place through the auspices of community mental health resources. PROGNOSIS Remains somewhat guarded. Dictated by... Luisito Urbano M.D. CB/leo Unit #: [id number] #: [id number] Patient: EDWARD MARKS TD: 12/03/2016 07:39 JOB #: [id number] DISCHARGE SUMMARY Page 1 of 1 X Luisito Urbano MD DISCHARGE SUMMARY
--- NOTE | ~2016-11-29 | PA ---
Unit #: [id number] #: [id number] Patient: EDWARD MARKS [id number] [facility] [address] [place] [address] [id number] I MR#: [id number] NAME: EDWARD MARKS. ROOM: P207 Age: 26 Sex: M Admission Date: 11/29/2016 : 1990 Date of Assessment: 11/29/2016 Attending Physician: Luisito Urbano M.D. Admitting Physician: Luisito Urbano M.D. Primary Care Physician: Primary Care Physician No PSYCHIATRIC ASSESSMENT IDENTIFYING INFORMATION The patient is a 26-year-old white male admitted reporting positive suicidal ideation and command hallucinations. INFORMANT(S) Patient and chart. RELIABILITY Poor. CHIEF COMPLAINT None given. HISTORY OF PRESENT ILLNESS The patient is a 26-year-old white male well-known to this physician from multiple previous admissions to this facility, the last of which ended in late October of this year. The patient returns after presenting to this facility reporting that his "brain was scattered." The patient reported that he was "hearing voices" telling him to himself and he also reports suicidal ideation with plan to "cut himself." The patient reports that his home situation has been a chaotic one with several family members moving in and out. This has been a major stressor for him as has been grief related to his mother's illness and uncle's recent . When seen today, the patient has his head covered with a blanket and multiple calls to awaken the patient are unsuccessful. For a more complete history of present illness, please refer to previous dictated notes. PAST PSYCHIATRIC HISTORY Reviewed, no changes. FAMILY HISTORY/SOCIAL HISTORY Reviewed, no changes. MEDICAL HISTORY Reviewed, no changes. MEDICATION HISTORY 1. Desyrel. 2. Motrin. 3. Seroquel. 4. Neurontin. 5. Depakote ER. 6. Pepcid. Unit #: [id number] #: [id number] Patient: EDWARD MARKS 7. Thorazine. 8. Claritin. ALLERGIES Abilify. MENTAL STATUS EXAM At this time, reveals the patient to be an obese white male appearing his stated age. He is of large stature. His head is covered with a blanket and the patient does not awaken for interview. ASSETS AND LIABILITIES Patient's assets to be assessed. Liabilities, history of substance use, poor compliance with treatment. ADMITTING DIAGNOSES 1. Bipolar disorder, most recent episode depressed. 2. Antisocial personality traits versus disorder. 3. Opioid use disorder by history. 4. Alcohol use disorder by history. 5. Methamphetamine use disorder by history. 6. Zdfcxom-Tkhayo-Rxbqml syndrome. PSYCHIATRIC PLAN/TREATMENT GOALS The patient remains hospitalized for safety and stabilization. His medications will be reinitiated and routine suicide precautions have been ordered. ESTIMATED LENGTH OF STAY Three to five days with followup to take place through the auspices of community mental health resources. Dictated by... Luisito Urbano M.D. REZA/iban TD: 11/29/2016 16:53 JOB #: [id number] PSYCHIATRIC ASSESSMENT Page 1 of 1 X Luisito Urbano MD X PSYCHIATRIC ASSESSMENT
--- NOTE | ~2016-11-29 | PN ---
Unit #: [id number] #: [id number] Patient: EDWARD MARKS [id number] [facility] [address] [place] [address] [id number] I MR#: [id number] NAME: EDWARD MARKS ROOM: P207 Age: 26 Sex: M Admission Date: 11/29/2016 : 1990 Attending Physician: Luisito Urbano M.D. Admitting Physician: Luisito Urbano M.D. Primary Care Physician: Primary Care Physician Bridget BAJWA PROGRESS NOTES DATE 12/01/2016 DISCUSSION The patient is complaining of some ongoing restlessness and anxiety. I will add Inderal 10 mg 3 times daily to his already aggressive pharmacotherapeutic regimen. Dictated by... Luisito Urbano M.D. CB/bzg TD: 12/01/2016 14:24 JOB #: [id number] [facility] PROGRESS NOTES Page 1 of 1 X Luisito Urbano MD X PROGRESS NOTE
== END 2016-12-02 17:22 | disposition home or self-care (01) | DRG 885 ==
LOC: P2S 04:54
DX: F31.9 Bipolar disorder, unspecified (principal); F11.10 Opioid abuse, uncomplicated; F15.10 Other stimulant abuse, uncomplicated; F10.10 Alcohol abuse, uncomplicated; F60.2 Antisocial personality disorder